=== PATIENT | male | born 1975 | race Caucasian/White ===

== ENCOUNTER 2021-11-18 15:52 | Inpatient (IN) ==
--- NOTE | 2021-11-18 16:04 | ED Triage Note ---
Date of Service November 18, 2021 History of Present Illness This patient was briefly evaluated while in triage. An abbreviated physical exam was performed. This patient is a 46-year-old Male with left facial droop and left arm and leg asleep. Left sided. Symptoms started yesterday afternoon, shortly after lunch time. No new symptoms from yesterday. Slightly slurred speech he notes. Physical Exam GENERAL: 46 year old male. In no acute distress. SKIN: No lesions or rashes. HEART: Regular rate and rhythm. LUNGS: Clear to auscultation. ABDOMEN: Bowel sounds normoactive. No guarding or rigidity. No tenderness of palpation. NEURO: L facial droop noted. L arm and L leg weaker than R. MUSCULOSKELETAL: No deformities to inspection of the extremities. PSYCH: Patient is pleasant and answers all questions appropriately. Initial orders for labs and / or imaging were placed. Stroke initial eval orders placed for STAT imaging of head/neck and labs.
--- NOTE | 2021-11-18 16:17 | Emergency Department Note ---
Impression & Plan Acute ischemic stroke, Hypomagnesemia ED Provider Note NAME: CRISTINA KELLER II AGE: 46 SEX: M : 1975 ARRIVES VIA: Walk-In INFORMANT: Patient, ED PROVIDER(S): Kevan Tim DO CHIEF COMPLAINT: Strokelike symptoms HPI: The patient is a 46-year-old male who presented to the emergency department for an evaluation of strokelike symptoms. The patient states yesterday while he was at work between noon and 1 PM he started having strokelike symptoms which included left-sided facial droop left arm weakness and left leg weakness. His significant other presented to the emergency department with him and states that he has been walking while dragging his left leg. He states he may have had some sinus pressure but overall did not have any specific headache nausea or vomiting. He denies having any chest pain or difficulty breathing. He has not had similar symptoms in the past. He has no family history of stroke or per [place] history of stroke. He does not take medication for hypertension. He did not see his family doctor but came directly to the emergency department today after symptoms did not improve. ROS: See above HPI for pertinent positives & negatives. A total of 10 systems reviewed and were otherwise negative. PAST MEDICAL HISTORY: See Below PAST SURGICAL HISTORY: See Below FAMILY HISTORY: See Below SOCIAL HISTORY: See Below HOME MEDICATIONS: See Below ALLERGIES: See Below VITALS: See Below PHYSICAL EXAMINATION: GENERAL: Patient is awake alert in no acute distress patient is resting comfortably and showing no signs of anxiety EYES: The conjunctivae are clear. The pupils are round and reactive. EARS, NOSE, MOUTH AND THROAT: The nose is without any evidence of any deformity. NECK: The neck is nontender and supple. RESPIRATORY: Normal respiratory effort is noted there is no evidence of wheezing rhonchi or rales CARDIOVASCULAR: Regular rate and rhythm noted there no murmurs rubs or gallops normal S1 normal S2. GASTROINTESTINAL: The abdomen is soft. Abdomen is nontender. MUSCULOSKELETAL/EXTREMITIES: There is no evidence of gross deformity full range of motion is noted in the hips and shoulders. SKIN: There is no obvious evidence of any rash. There are no petechiae, pallor or cyanosis noted. NEUROLOGIC: Patient is awake alert and oriented x3. There is a left-sided facial droop noted with forehead sparing. Speech was clear. Dress Designer strength appeared to be symmetric but there is a slight drift in the left upper extremity. The patient is able to each leg off of the chair but he appears to have diminished strength in the left leg compared to the right. MEDICAL DECISION MAKING: The patient is a 46-year-old male who presented to the emergency department for an evaluation of strokelike symptoms. The patient's symptoms were greater than 24 hours in onset. The patient had left-sided facial droop and left-sided weakness including his leg and arm. He was not made a stroke alert because of the timing of presentation. The patient presented to the emergency department during high-volume time and spent most of his evaluation by me in the waiting room which was suboptimal. The patient was reevaluated multiple times. I discussed the patient's laboratory and radiographic studies with him. CT and CT angiography did not show a definite cause for the patient's symptoms. Given his exam I do feel this is likely an ischemic stroke. I discussed his condition with the on-call [facility] hospitalist. They have agreed to evaluate the patient in the emergency department for further evaluation. Likely patient require further neuroimaging to determine exact cause of his findings. Triage Nursing notes reviewed. Prior medical records reviewed Vital Signs: reviewed and remarkable for no significant abnormalities Differential diagnosis: Infection, dehydration, metabolic abnormality, hypo/hyperglycemia, electrolyte disturbance, anemia, hypoxia, cardiac sources, intracerebral event, toxicologic, neurologic, as well as other pathologies. ER treatment provided: See below Diagnostics interpreted by me: ECG: EKG was obtained in the emergency department. My interpretation is normal sinus rhythm at 90 bpm. There is no ectopy. There is no acute ST segment abnormalities noted. No previous tracing was available. Cardiac Monitoring: An order was placed for continuous cardiac monitoring. The monitor shows a rate of 73 bpm with sinus rhythm. Laboratory studies: As stated above and show below. Imaging studies: See below Consultation(s): Discussed this case with Talya who is on for the [facility] group. Past Med/Surg History Medical History Dyslipidemia Erectile dysfunction History of COVID-19 tested positive March 2021 at [facility]. symptoms: sinus congestion and cough. no current symptoms. Surgical History History of tonsillectomy Family History Mother Breast cancer Father Malignant hyperthermia due to anesthesia Hypertriglyceridemia Lymphocytic leukemia Denies family history of Sudden Ovarian cancer Prostate cancer Myocardial infarction Lung cancer Colorectal cancer Stroke Social History Smoking Status: Never smoker Tobacco Type: Cigars Second Hand Exposure: No; Hx Alcohol Use: No Hx Substance Use: No Preferred Language: Micronesian Communication Ability: Effective Foreign Diplomat Required: No Beliefs That Will Affect Care: None marital status: Current Living Situation: Spouse current occupational status: employed 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 Other Information That Helps Us Care for You: No Feels Safe at Home: Yes Safety Concerns: Feels Safe At This Time Childhood Exposure to Second-Hand Smoke: Yes caffeine: Yes (Soda) Dental Care, Regularly: Yes Physical Activity Frequency: Does not Exercise Seatbelt Use: always Sunscreen Use: Yes Assistive Devices: None Allergies Allergies Allergy/AdvReac Type Severity Reaction Status Date / Time No Known Allergies Verified 05/21/21 12:07 Home Meds Home Medications Medication Instructions Recorded Confirmed ascorbic acid (vitamin C) 1,000 mg 1 gm PO BID 01/25/19 05/21/21 tablet cholecalciferol (vitamin D3) 25 2,000 units PO QAM 01/25/19 05/21/21 mcg (1,000 unit) capsule omega-3 acid ethyl esters 1 gram 2 cap PO QAM 01/25/19 05/21/21 capsule loratadine 10 mg tablet (Claritin) 10 mg PO QAM 05/13/21 05/21/21 fenofibrate nanocrystallized 48 mg 48 mg PO QAM 05/18/21 05/21/21 tablet (Tricor) sildenafil (pulm.hypertension) 20 See Rx Instructions .Route 05/18/21 05/21/21 mg tablet .COMPLEX PRN Erectile Dysfunction Previous Rx's Medication Instructions Recorded sodium sul 1.479 gram-potas ch See Rx Instructions PO .COMPLEX 05/14/21 0.188 gram-magnes sul 0.225 gram #24 tabs tablet (Sutab) Results & Data (ED) Vital Signs Vital Signs - 24 hr 11/18/21 16:02 Temperature 36.5 C Temperature Source Temporal Artery Scan Pulse Rate 95 H Respiratory Rate 18 Respiratory Effort / Characteristics Non-Labored Spontaneous Respiratory Depth Normal Respiratory Pattern Regular Blood Pressure 163/93 H Blood Pressure Mean 116 Blood Pressure Position Sitting Pulse Oximetry 97 Oxygen Delivery Method Room Air Sepsis Recent Fever Within 48 Hours No Sepsis New/Unexplained Change in Mental Status No Sepsis Action Taken by Nursing No Action Required Home Medications Current Medication List: was personally reviewed by me Laboratory Data Attestation: I reviewed the patient's lab results. Result diagrams: 11/19/21 06:59 11/19/21 06:59 Lab Results 11/18/21 11/18/21 11/18/21 Range/Units 16:17 16:17 16:17 WBC 5.64 (4.8-10.8) K/ul RBC 4.77 (4.63-6.08) M/uL Hgb 14.5 (14.0-18.0) g/dl Hct 42.0 (40.1-51.0) % MCV 88.1 (80.0-100.0) fL MCH 30.4 (25.0-34.0) pg MCHC 34.5 (32.0-36.0) g/dL RDW Std Deviation 41.4 (36.4-46.3) fL RDW Coeff of Mindi 12.8 (11.5-14.5) % Plt Count 191 (130-400) K/uL MPV 9.3 L (9.4-12.4) fL Immature Gran % (Auto) 0.5 % Neut % (Auto) 58.6 % Lymph % (Auto) 27.1 % Sherman % (Auto) 11.9 % Eos % (Auto) 1.2 % Baso % (Auto) 0.7 % Neut # (Auto) 3.30 (1.4-6.5) K/uL Lymph # (Auto) 1.53 (1.2-3.4) K/uL Sherman # (Auto) 0.67 (0.24-0.82) K/uL Eos # (Auto) 0.07 (0-0.50) K/uL Baso # (Auto) 0.04 (0-0.2) K/uL Immature Gran # (Auto) 0.03 H (0.00-0.02) K/uL PT 11.3 (9.0-12.0) Seconds INR 1.1 (0.9-1.1) APTT 32.3 H (21.0-31.0) Seconds PTT Ratio 1.2 Sodium 139 (136-145) mmol/L Potassium 3.6 (3.5-5.1) mmol/L Chloride 107 (98-107) mmol/L Carbon Dioxide 23 (21-32) mmol/L Anion Gap 9 (3-11) BUN 14 (6-23) mg/dl Creatinine 0.81 (0.6-1.4) mg/dl Est Cr Clr Drug Dosing 139.9 ml/min Est GFR ( Amer) 123.5 ml/min Est GFR (Non-Af Amer) 106.6 ml/min BUN/Creatinine Ratio 17.3 (10-20) Glucose 75 (70-99(Fasting)) mg/dl Calcium 10.7 H (8.5-10.1) mg/dl Magnesium 1.6 L (1.7-2.4) mg/dl Total Bilirubin 0.6 (0.2-1.0) mg/dl AST 22 (13-39) U/L ALT 30 (7-52) U/L Alkaline Phosphatase 56 (34-104) U/L Troponin I High Sens 3.4 (0-20) pg/ml Total Protein 7.7 (6.0-8.3) gm/dl Albumin 4.9 (3.4-5.0) gm/dl Globulin 2.8 (2.5-4.0) gm/dl Albumin/Globulin Ratio 1.8 (0.9-2) Administered Medications Ascorbic Acid (Ascorbic Acid 500 Mg Tab) 1,000 mg PO BID GOMEZ Stop: 12/18/21 23:05 Last Admin: 11/19/21 01:28 Dose: Not Given Documented By: ANAHI Discontinued Medications Aspirin (Aspirin Chew 324 Mg) 324 mg PO NOW STA Stop: 11/18/21 20:19 Last Admin: 11/18/21 21:19 Dose: 324 mg Documented By: RDD Magnesium Sulfate/Dextrose (Magnesium Sulfate / D5w) 1 gm in 100 mls @ 100 mls/hr IV Q1H GOMEZ Stop: 11/18/21 20:25 Last Infusion: 11/18/21 22:43 Dose: 0 mls/hr Documented By: Admin: 11/18/21 19:33 Dose: 100 mls/hr Documented By: Infusion: 11/18/21 19:33 Dose: 100 mls/hr Documented By: Admin: 11/18/21 19:32 Dose: 100 mls/hr Documented By: LIZZ Ioversol (Optiray 300 500ml) 120 ml IV ONCE ONE Stop: 11/18/21 17:50 Last Admin: 11/18/21 20:02 Dose: Not Given Documented By: LIZZ Imaging Data Radiologist's Impression: Chest X-Ray 11/18/21 16:04 SINGLE VIEW CHEST CLINICAL HISTORY: Strokelike symptoms FINDINGS: 2 AP, portable, upright chest radiographs are obtained. No prior studies are available for comparison at the time of dictation. The cardiomediastinal silhouette is unremarkable. The lungs and pleural spaces are clear. No pneumothorax is seen. The bony thorax is grossly intact. IMPRESSION: No active disease in the chest. ACT 112: Negative or not required by law. Electronically signed by: Shlomo Ellison M.D. 11/18/2021 5:[address] 11/18/21 16:04 CT OF THE HEAD WITHOUT CONTRAST CLINICAL HISTORY: Stroke Like Symptoms COMPARISON STUDY: No previous studies for comparison. TECHNIQUE: Helical axial images of the head were obtained without IV contrast. Automated exposure control was utilized for the study. A dose lowering technique was utilized adhering to the principles of ALARA. FINDINGS: No acute intracranial hemorrhage, midline shift or mass effect is present. The ventricular system is unremarkable. The basal cisterns are patent. No extra-axial collections are present. There are no findings to suggest acute dural sinus thrombosis or acute territorial infarct. No significant calvarial abnormalities are present. IMPRESSION: No acute intracranial findings. ACT 112: Negative or not required by law. Electronically signed by: Alejandro Giang M.D. 11/18/2021 6:05 PM Head CTA 11/18/21 16:04 CTA ANGIOGRAPHY OF THE HEAD CLINICAL HISTORY: Stroke Like Symptoms COMPARISON STUDY: No previous studies for comparison. TECHNIQUE: Helical axial images of the head were obtained following uneventful intravenous administration of 119 cc of Optiray. Sagittal and coronal reconstructions were viewed as well as maximal intensity projections on an independent 3-D workstation. Automated exposure control was utilized for the study. A dose lowering technique was utilized adhering to the principles of ALARA. FINDINGS: Mucous retention cysts with polypoid mucosal thickening of the maxillary sinuses is noted. Left ethmoid sinus mucosal thickening is present. Tiny infundibula of the bilateral supraclinoid ICAs are noted. There is possible occlusion of a small sylvian branch of the left middle cerebral artery shown on axial image 121 of 279. No additional sites of vessel occlusion are noted. This could be artifactual. The posterior circulation is intact. There is no intracranial aneurysm. There is no dissection within the intracranial vessels. IMPRESSION: 1. Possible occlusion of a small sylvian branch of the left middle cerebral artery. This may be artifactual however correlation with evidence for a left MCA territory infarct is recommended. 2. Otherwise, unremarkable CTA of the head. ACT 112: Negative or not required by law. Electronically signed by: Alejandro Giang M.D. 11/18/2021 6:16 PM Neck CTA 11/18/21 16:04 CT ANGIOGRAPHY OF THE NECK WITH CONTRAST CLINICAL HISTORY: Stroke Like Symptoms COMPARISON STUDY: No previous studies for comparison. Technique: CT angiography of the carotid and vertebral arteries was obtained using Optiray and 3D reconstruction on an independent workstation. [employer] crit eria was utilized. Automated exposure control was utilized for the study. A dose lowering technique was utilized adhering to the principles of ALARA. CT DOSE: 1232.39 mGy.cm Findings: Several prominent left supraclavicular lymph nodes measure up to 8 mm in short axis diameter. No acute cervical spine fracture is noted. Mucus reten tion cysts with polypoid mucosal thickening within the maxillary sinuses is noted. The bilateral vertebral arteries are patent. There is no stenosis within these vessels. The right vertebral artery is dominant. There is mild plaque within the proximal bilateral internal carotid arteries without stenosis. There is no aneurysm or dissection within the major vessels of the neck. IMPRESSION: 1. Mild atherosclerotic plaque within the proximal bilateral internal carotid arteries without significant stenosis. 2. No dissection within the major vessels of the neck. ACT 112: Negative or not required by law. Electronically signed by: Alejandro Giang M.D. 11/18/2021 6:08 PM Discharge Plan Visit Data Chief Complaint: TIA Symptoms Stated Complaint: NUMBNESS ON L SIDE, BALANCE ISSUES, SLURRED SPEECH ED Provider: Kevan Tim Discharge Problem: Acute ischemic stroke, Hypomagnesemia Patient Disposition: Admitted As Inpatient Discharge Instructions Interventions: ED Discharge Assessment Last Done: 11/18/21 23:05
[2021-11-18 16:28] LABS: Basophils # (auto) 0.04 K/uL (0-0.2); Basophils % (auto) 0.7 %; Eosinophils # (auto) 0.07 K/uL (0-0.50); Eosinophils % (auto) 1.2 %; Hemoglobin 14.5 g/dl (14.0-18.0); Immature Granulocytes # (auto) 0.03 K/uL (0.00-0.02); Immature Granulocytes % (auto) 0.5 %; Lymphocytes # (auto) 1.53 K/uL (1.2-3.4); Lymphocytes % (auto) 27.1 %; Mean Corpuscular Hemoglobin 30.4 pg (25.0-34.0); Mean Corpuscular Hgb Conc 34.5 g/dL (32.0-36.0); Mean Corpuscular Volume 88.1 fL (80.0-100.0); Mean Platelet Volume 9.3 fL (9.4-12.4); Monocytes # (auto) 0.67 K/uL (0.24-0.82); Monocytes % (auto) 11.9 %; Neutrophils % (auto) 58.6 %; Platelet Count 191 K/uL (130-400); RDW Coefficient of Variation 12.8 % (11.5-14.5); RDW Standard Deviation 41.4 fL (36.4-46.3); Red Blood Count 4.77 M/uL (4.63-6.08); White Blood Count 5.64 K/ul (4.8-10.8)
[2021-11-18 16:39] LABS: INR 1.1 (0.9-1.1); Partial Thromboplastin Ratio 1.2; Partial Thromboplastin Time 32.3 Seconds (21.0-31.0); Prothrombin Time 11.3 Seconds (9.0-12.0)
[2021-11-18 16:57] LABS: Albumin Globulin Ratio 1.8 (0.9-2); Albumin Level 4.9 gm/dl (3.4-5.0); BUN Creatinine Ratio 17.3 (10-20); Bilirubin,Total 0.6 mg/dl (0.2-1.0); Calcium 10.7 mg/dl (8.5-10.1); Creatinine Clr Calc Pharmacy 139.9 ml/min; Est GFR (African American) 123.5 ml/min; Est GFR (Non-African American) 106.6 ml/min; Globulin 2.8 gm/dl (2.5-4.0); Magnesium 1.6 mg/dl (1.7-2.4); Potassium 3.6 mmol/L (3.5-5.1); Total Protein 7.7 gm/dl (6.0-8.3)
[2021-11-18 16:58] LABS: Troponin I High Sensitivity 3.4 pg/ml (0-20)
--- NOTE | 2021-11-18 17:17 | XRay Report ---
SINGLE VIEW CHEST CLINICAL HISTORY: Strokelike symptoms FINDINGS: 2 AP, portable, upright chest radiographs are obtained. No prior studies are available for comparison at the time of dictation. The cardiomediastinal silhouette is unremarkable. The lungs and pleural spaces are clear. No pneumothorax is seen. The bony thorax is grossly intact. IMPRESSION: No active disease in the chest. ACT 112: Negative or not required by law. Electronically signed by: Shlomo Ellison M.D. 11/18/2021 5:16 PM
[2021-11-18] MEDS ORDERED: OPTIRAY 300 500mL IV ONE (17:49)
--- NOTE | 2021-11-18 18:06 | CT Scan Report ---
CT OF THE HEAD WITHOUT CONTRAST CLINICAL HISTORY: Stroke Like Symptoms COMPARISON STUDY: No previous studies for comparison. TECHNIQUE: Helical axial images of the head were obtained without IV contrast. Automated exposure con trol was utilized for the study. A dose lowering technique was utilized adhering to the principles o f ALARA. FINDINGS: No acute intracranial hemorrhage, midline shift or mass effect is present. The ventricular system is unremarkable. The basal cisterns are patent. No extra-axial collections are present. There are no findings to suggest acute dural sinus thrombosis or acute territorial infarct. No significant calvarial abnormalities are present. IMPRESSION: No acute intracranial findings. ACT 112: Negative or not required by law. Electronically signed by: Alejandro Giang M.D. 11/18/2021 6:05 PM
--- NOTE | 2021-11-18 18:10 | CT Scan Report ---
CT ANGIOGRAPHY OF THE NECK WITH CONTRAST CLINICAL HISTORY: Stroke Like Symptoms COMPARISON STUDY: No previous studies for comparison. Technique: CT angiography of the carotid and vertebral arteries was obtained using Optiray and 3D rec onstruction on an independent workstation. NASCET criteria was utilized. Automated exposure control was utilized for the study. A dose lowering technique was utilized adhering to the principles of ALA RA. CT DOSE: 1232.39 mGy.cm Findings: Several prominent left supraclavicular lymph nodes measure up to 8 mm in short axis diamete r. No acute cervical spine fracture is noted. Mucus retention cysts with polypoid mucosal thickening within the maxillary sinuses is noted. The bilateral vertebral arteries are patent. There is no steno sis within these vessels. The right vertebral artery is dominant. There is mild plaque within the pro ximal bilateral internal carotid arteries without stenosis. There is no aneurysm or dissection within the major vessels of the neck. IMPRESSION: 1. Mild atherosclerotic plaque within the proximal bilateral internal carotid arteries without signif icant stenosis. 2. No dissection within the major vessels of the neck. ACT 112: Negative or not required by law. Electronically signed by: Alejandro Giang M.D. 11/18/2021 6:08 PM
--- NOTE | 2021-11-18 18:19 | CT Scan Report ---
CTA ANGIOGRAPHY OF THE HEAD CLINICAL HISTORY: Stroke Like Symptoms COMPARISON STUDY: No previous studies for comparison. TECHNIQUE: Helical axial images of the head were obtained following uneventful intravenous administr ation of 119 cc of Optiray. Sagittal and coronal reconstructions were viewed as well as maximal inten sity projections on an independent 3-D workstation. Automated exposure control was utilized for the study. A dose lowering technique was utilized adhering to the principles of ALARA. FINDINGS: Mucous retention cysts with polypoid mucosal thickening of the maxillary sinuses is noted. Left ethmoid sinus mucosal thickening is present. Tiny infundibula of the bilateral supraclinoid ICAs are noted. There is possible occlusion of a small sylvian branch of the left middle cerebral artery shown on axial image 121 of 279. No additional sites of vessel occlusion are noted. This could be art ifactual. The posterior circulation is intact. There is no intracranial aneurysm. There is no dissect ion within the intracranial vessels. IMPRESSION: 1. Possible occlusion of a small sylvian branch of the left middle cerebral artery. This may be artif actual however correlation with evidence for a left MCA territory infarct is recommended. 2. Otherwise, unremarkable CTA of the head. ACT 112: Negative or not required by law. Electronically signed by: Alejandro Giang M.D. 11/18/2021 6:16 PM
--- NOTE | 2021-11-18 18:47 | History & Physical Report ---
Date of Service November 18, 2021 Assessment & Plan (1) Stroke-like symptom: Plan: - LLE weakness, left side facial droop, LUE weakness from elbow up since noon yesterday 11/18. Patient all extremities on exam, but obviously struggling with LLE compared to right. NIH 2. - CT head without evidence of mass/hemorrhage/infarct. - CTA of head and neck w/ possible occlusion of a small sylvian branch of the left middle cerebral artery; no significant stenosis. - MRI, routine, tomorrow. - Echo in a.m. - CBC, BMP, HbA1c, lipid panel in a.m. - PT, OT, to evaluate. - Hypercoag panel ordered. - Avoid hypotension, hypoglycemia. - Telemetry for 24 hours, evaluate for episodes of atrial fibrillation. - Neuro consulted, appreciate their recommendations. - Full dose ASA ordered. (2) Dyslipidemia: Plan: - Continue Tricor. Lipid panel in AM. (3) Nasal congestion: Plan: - Sinus pressure during onset of symptoms yesterday has since resolved. - Continue Claritin. Plan - Admit to med/tele. - SCDS for VTE ppx. - Full Code. 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 Yesterday at work around noon, he noticed that the left side of his body seemed weaker than the right. He notes it felt like when the circulation gets cut off and part of her body goes numb. When he went home, his noticed that he seemed to be talking out of the right side of his mouth and had a left-sided facial droop. He is also been dragging his left leg a bit to walk. Since onset yesterday afternoon, his symptoms seem to become worse, therefore he presents today for further evaluation. Prior to this, he had been feeling well. He notes some sinus congestion when the symptoms began yesterday, however this has cleared up. He denies any fever/chills, headaches, neck stiffness, visual changes, sudden chest pain or palpitations, or right-sided involvement. Other than medication for high cholesterol, he is not on any other medications other than vitamins, Viagra, and Claritin. He is physically active at his job and has some exercise related body aches, however denies any neck or back injuries. Has had no recent rashes or tick bites, no decreased energy or myalgias. He has no personal family history of strokes or blood clotting disorders. In ED, still mildly hypertensive otherwise vital signs within normal limits and stable. Labs significant for magnesium slightly low at 1.6, otherwise unremarkable. Head CT unrevealing. On head CTA, there is a possible occlusion of the small sylvian branch of the left MCA, possibly artifactual. Neck CTA there is mild atherosclerotic plaque of the proximal bilateral internal carotid arteries without significant stenosis, no dissection within major vessels of the neck. Allergies Allergy/AdvReac Type Severity Reaction Status Date / Time No Known Allergies Verified 05/21/21 12:07 Home Medications Medication Instructions Recorded Confirmed Type ascorbic acid (vitamin C) 1,000 mg 1 gm PO BID 01/25/19 05/21/21 History tablet cholecalciferol (vitamin D3) 25 2,000 units PO QAM 01/25/19 05/21/21 History mcg (1,000 unit) capsule omega-3 acid ethyl esters 1 gram 2 cap PO QAM 01/25/19 05/21/21 History capsule loratadine 10 mg tablet (Claritin) 10 mg PO QAM 05/13/21 05/21/21 History sodium sul 1.479 gram-potas ch See Rx Instructions PO .COMPLEX 05/14/21 05/21/21 Rx 0.188 gram-magnes sul 0.225 gram #24 tabs tablet (Sutab) fenofibrate nanocrystallized 48 mg 48 mg PO QAM 05/18/21 05/21/21 History tablet (Tricor) sildenafil (pulm.hypertension) 20 See Rx Instructions .Route 05/18/21 05/21/21 History mg tablet .COMPLEX PRN Erectile Dysfunction Past Med/Surg History Medical History Dyslipidemia Erectile dysfunction History of COVID-19 tested positive March 2021 at [facility]. symptoms: sinus congestion and cough. no current symptoms. Surgical History History of tonsillectomy Family History Mother Breast cancer Father Malignant hyperthermia due to anesthesia Hypertriglyceridemia Lymphocytic leukemia Denies family history of Sudden Ovarian cancer Prostate cancer Myocardial infarction Lung cancer Colorectal cancer Stroke Social History Smoking Status: Never smoker Tobacco Type: Cigars Second Hand Exposure: No; Hx Alcohol Use: No Hx Substance Use: No Preferred Language: Japanese Communication Ability: Effective Assistant To The Director Required: No Beliefs That Will Affect Care: None marital status: Current Living Situation: Spouse current occupational status: employed 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 Other Information That Helps Us Care for You: No Feels Safe at Home: Yes Safety Concerns: Feels Safe At This Time Childhood Exposure to Second-Hand Smoke: Yes caffeine: Yes (Soda) Dental Care, Regularly: Yes Physical Activity Frequency: Does not Exercise Seatbelt Use: always Sunscreen Use: Yes Assistive Devices: None Review of Systems Review of Systems: All systems reviewed & are unremarkable except as noted in HPI & below Physical Exam Physical Exam: General: awake, alert, no apparent distress Head: Normocephalic, atraumatic ENT: PERRL, EOMI, no pharyngeal exudate, mucous membranes moist Chest: Clear to auscultation, on room air, no adventitious breath sounds Cardiac: Regular rate and rhythm, no murmur, no JVD, normal peripheral pulses, good capillary refill Abdominal: NABS x 4 quadrants, soft, nontender to palpation, no rebound, guarding or tenderness Extremities: Normal inspection, no peripheral edema or erythema, calfs nontender to palpation Psych: Normal mood and affect Neuro: AAO x 3, able to lift all extremities against gravity but has some difficulty with LLE; left sided facial droop which spares forehead Skin: no rash or erythema Results & Data Results & Data ([facility]) Vital Signs (Past 12 Hours) Vital Signs Temp Pulse Resp BP Pulse Ox O2 Del Method 11/18/21 16:02 36.5 C 95 H 18 163/93 H 97 Room Air Laboratory Results Abnormal lab results 11/18/21 11/18/21 11/18/21 Range/Units 16:17 16:17 16:17 MPV 9.3 L (9.4-12.4) fL Immature Gran # (Auto) 0.03 H (0.00-0.02) K/uL APTT 32.3 H (21.0-31.0) Seconds Calcium 10.7 H (8.5-10.1) mg/dl Magnesium 1.6 L (1.7-2.4) mg/dl Diagnostic Findings Chest X-Ray 11/18/21 16:04 SINGLE VIEW CHEST CLINICAL HISTORY: Strokelike symptoms FINDINGS: 2 AP, portable, upright chest radiographs are obtained. No prior studies are available for comparison at the time of dictation. The cardiomediastinal silhouette is unremarkable. The lungs and pleural spaces are clear. No pneumothorax is seen. The bony thorax is grossly intact. IMPRESSION: No active disease in the chest. ACT 112: Negative or not required by law. Electronically signed by: Shlomo Ellison M.D. 11/18/2021 5:[address] 11/18/21 16:04 CT OF THE HEAD WITHOUT CONTRAST CLINICAL HISTORY: Stroke Like Symptoms COMPARISON STUDY: No previous studies for comparison. TECHNIQUE: Helical axial images of the head were obtained without IV contrast. Automated exposure control was utilized for the study. A dose lowering technique was utilized adhering to the principles of ALARA. FINDINGS: No acute intracranial hemorrhage, midline shift or mass effect is present. The ventricular system is unremarkable. The basal cisterns are patent. No extra-axial collections are present. There are no findings to suggest acute dural sinus thrombosis or acute territorial infarct. No significant calvarial abnormalities are present. IMPRESSION: No acute intracranial findings. ACT 112: Negative or not required by law. Electronically signed by: Alejandro Giang M.D. 11/18/2021 6:05 PM Head CTA 11/18/21 16:04 CTA ANGIOGRAPHY OF THE HEAD CLINICAL HISTORY: Stroke Like Symptoms COMPARISON STUDY: No previous studies for comparison. TECHNIQUE: Helical axial images of the head were obtained following uneventful intravenous administration of 119 cc of Optiray. Sagittal and coronal reconstructions were viewed as well as maximal intensity projections on an independent 3-D workstation. Automated exposure control was utilized for the study. A dose lowering technique was utilized adhering to the principles of ALARA. FINDINGS: Mucous retention cysts with polypoid mucosal thickening of the maxillary sinuses is noted. Left ethmoid sinus mucosal thickening is present. Tiny infundibula of the bilateral supraclinoid ICAs are noted. There is possible occlusion of a small sylvian branch of the left middle cerebral artery shown on axial image 121 of 279. No additional sites of vessel occlusion are noted. This could be artifactual. The posterior circulation is intact. There is no intracranial aneurysm. There is no dissection within the intracranial vessels. IMPRESSION: 1. Possible occlusion of a small sylvian branch of the left middle cerebral artery. This may be artifactual however correlation with evidence for a left MCA territory infarct is recommended. 2. Otherwise, unremarkable CTA of the head. ACT 112: Negative or not required by law. Electronically signed by: Alejandro Giang M.D. 11/18/2021 6:16 PM Neck CTA 11/18/21 16:04 CT ANGIOGRAPHY OF THE NECK WITH CONTRAST CLINICAL HISTORY: Stroke Like Symptoms COMPARISON STUDY: No previous studies for comparison. Technique: CT angiography of the carotid and vertebral arteries was obtained using Optiray and 3D reconstruction on an independent workstation. NASCET criteria was utilized. Automated exposure control was utilized for the study. A dose lowering technique was utilized adhering to the principles of ALARA. CT DOSE: 1232.39 mGy.cm Findings: Several prominent left supraclavicular lymph nodes measure up to 8 mm in short axis diameter. No acute cervical spine fracture is noted. Mucus retention cysts with polypoid mucosal thickening within the maxillary sinuses is noted. The bilateral vertebral arteries are patent. There is no stenosis within these vessels. The right vertebral artery is dominant. There is mild plaque w ithin the proximal bilateral internal carotid arteries without stenosis. There is no aneurysm or dissection within the major vessels of the neck. IMPRESSION: 1. Mild atherosclerotic plaque within the proximal bilateral internal carotid arteries without significant stenosis. 2. No dissection within the major vessels of the neck. ACT 112: Negative or not required by law. Electronically signed by: Alejandro Giang M.D. 11/18/2021 6:08 PM ECG Additional Comments: Normal sinus rhythm Possible Left atrial enlargement Borderline ECG No previous ECGs available. Code Status & VTE Plan Code Status Full code. Supervising Physician Co-Signing Physician Notes Attending addendum: I have physically seen this patient, have supervised the OMERO's activities, and agree with the H&P unless as otherwise noted. Assessment and Plan: Strokelike symptoms- Left lower extremity weakness, left-sided facial droop, left upper extremity weakness since noon on 11/18 CT head negative CTA head and neck with possible occlusion small sylvian branch of left MCA Stroke without tPA order set Order complete echocardiogram Order MRI brain without contrast Hypercoagulable work-up Permissive hypertension Get aspirin 324 mg now and 81 mg daily Dyslipidemia- Continue Tricor Check a fasting lipid panel Check hemoglobin A1c Remaining orders and notations as noted PG Care Time/CCT Total # of Minutes Spent Total Time Spent with Patient: Total time spent is greater than 50% in coordination of care (as documented) at patient's floor/unit and/or counseling patient: Coding Level of Care Code 63602 Initial Inpt Care Lvl 3 Diagnoses Stroke-like symptom R29.90 Dyslipidemia E78.5 Nasal congestion R09.81
[2021-11-18] MEDS: MAGNESIUM SULFATE / D5W 1 GM/100 ML BAG IV SCH ×2 (19:32→19:33)
[2021-11-18] MEDS ORDERED: ASPIRIN CHEW 324 MG PO STA (20:18)
[2021-11-18] MEDS ORDERED: ONDANSETRON INJ 2 MG/ML 2 ML VIAL IV PRN (23:06)
[2021-11-18] MEDS ORDERED: PHARMACIST DISCHARGE MED REC CONSULT PRN (23:06)
[2021-11-19] MEDS: ASCORBIC ACID 500 MG TAB PO SCH ×3 (01:28→22:00)
--- NOTE | 2021-11-19 05:52 | Electrocardiogram Report ---
Test Reason : Blood Pressure : / mmHG Vent. Rate : 090 BPM Atrial Rate : 090 BPM P-R Int : 134 ms QRS Dur : 090 ms QT Int : 340 ms P-R-T Axes : 076 038 042 degrees QTc Int : 415 ms Normal sinus rhythm Possible Left atrial enlargement Nonspecific ST abnormality No previous ECGs available Confirmed by Rahat Wallace ([id number]) on 11/19/2021 5:52:14 AM Referred By: Confirmed By:Rahat Wallace
[2021-11-19 07:25] LABS: Basophils # (auto) 0.03 K/uL (0-0.2); Basophils % (auto) 0.6 %; Hematocrit (blood only) 42.2 % (40.1-51.0); Hemoglobin 14.5 g/dl (14.0-18.0); Immature Granulocytes # (auto) 0.02 K/uL (0.00-0.02); Immature Granulocytes % (auto) 0.4 %; Lymphocytes # (auto) 1.68 K/uL (1.2-3.4); Lymphocytes % (auto) 33.2 %; Mean Corpuscular Hemoglobin 30.2 pg (25.0-34.0); Mean Corpuscular Hgb Conc 34.4 g/dL (32.0-36.0); Mean Corpuscular Volume 87.9 fL (80.0-100.0); Mean Platelet Volume 9.6 fL (9.4-12.4); Monocytes # (auto) 0.64 K/uL (0.24-0.82); Monocytes % (auto) 12.6 %; Neutrophils # (auto) 2.59 K/uL (1.4-6.5); Neutrophils % (auto) 51.2 %; Platelet Count 177 K/uL (130-400); RDW Coefficient of Variation 12.9 % (11.5-14.5); RDW Standard Deviation 41.6 fL (36.4-46.3); White Blood Count 5.06 K/ul (4.8-10.8)
[2021-11-19 07:46] LABS: BUN Creatinine Ratio 16.2 (10-20); Calcium 9.4 mg/dl (8.5-10.1); Chol HDL Ratio 5.9 (0-5); Creatinine Clr Calc Pharmacy 153.1 ml/min; Est GFR (African American) 128.2 ml/min; Est GFR (Non-African American) 110.6 ml/min; Potassium 3.8 mmol/L (3.5-5.1)
--- NOTE | 2021-11-19 08:00 | Magnetic Resonance Report ---
MRI OF THE BRAIN WITHOUT IV CONTRAST CLINICAL HISTORY: Strokelike symptoms. COMPARISON STUDY: CT of the brain dated 11/18/2021. TECHNIQUE: MRI of the brain was performed utilizing various T1 and T2-weighted sequences in the axial , sagittal, and coronal planes. IV contrast was not administered for this examination. FINDINGS: Brain parenchyma: There is a 2.2 cm focus of restricted diffusion identified in the posterior right c tori radiata/basal ganglia consistent with an acute to subacute lacunar infarct. No additional foci of restricted diffusion identified. There is no hemorrhage or mass effect. No extra-axial fluid colle ction is seen. There is minimal microangiopathic change. The cerebellar tonsils are normal in configu ration. Ventricles, sulci, and cisterns: Normal in configuration. Pituitary and sella: Unremarkable. Intracranial vasculature: Normal flow voids are maintained at the skull base. Orbits: The bony orbits are grossly intact. Orbital contents are normal in appearance. Sinuses and mastoids: There is mild mucosal thickening within the maxillary antra. Retention cysts wi thin the maxillary sinuses measuring 2.2 cm. Mild mucosal thickening is also seen within the left fro ntal and ethmoid sinuses. There are trace mastoid effusions. Calvarium: Unremarkable. Cervical cord: Partially visualized cervical spinal cord is normal in morphology and signal intensity . IMPRESSION: 1. There is an acute to subacute lacunar infarct identified in the posterior right morfin radiata/bas al ganglia as above. 2. No additional foci of acute ischemia identified. 3. There is no hemorrhage or mass effect. ACT 112: Negative or not required by law. Electronically signed by: Shlomo Ellison M.D. 11/19/2021 7:58 AM
[2021-11-19 08:48] LABS: Estimated Average Glucose 117 mg/dl; Hemoglobin A1C 5.7 % (4.5-5.6)
[2021-11-19] MEDS: CHOLECALCIFEROL 1,000 UNITS 25 MCG TAB PO SCH (11:32)
[2021-11-19] MEDS: FENOFIBRATE NANOCRYSTALLIZED 48 MG TABLET PO SCH (11:32)
[2021-11-19] MEDS: LORATADINE 10 MG TAB PO SCH (11:32)
[2021-11-19] MEDS: ASPIRIN 81 MG ECTAB PO SCH (11:33)
[2021-11-19] MEDS: ATORVASTATIN 40 MG TAB PO SCH (11:33)
[2021-11-19] MEDS: ENOXAPARIN INJ 40 MG/0.4 ML SYR SQ SCH (11:33)
--- NOTE | 2021-11-19 15:35 | Neurology Consultation ---
Date of Consultation November 19, 2021 Assessment & Plan (1) Acute ischemic stroke: (2) Dyslipidemia: (3) COVID-19 determined by clinical diagnostic criteria: Plan ASSESSMENT and PLAN/RECOMMENDATIONS: 1. Acute/subacute ischemic stroke, involving the right internal capsule/basal ganglia. Impression: Based on location, the likely underlying mechanism is small vessel disease. However, active COVID-19 infection might induce hypercoagulability. The patient has hyperlipidemia, which is a risk factor for cerebrovascular accident. He also describes snoring and excessive daytime sleepiness, which might indicate sleep disordered breathing which is another potential stroke risk factor. Plan: We will keep the patient on aspirin 81 g daily. Loaded on Plavix 300 mg now, then daily 75 mg for next 3 weeks. Lipitor 80 mg at bedtime. Goal LDL level is lower than 70. Dosage of Lipitor should be adjusted based on follow-up serum lipid levels. Blood pressure management. There is no indication for permissive hypertension. Goal blood pressure is below 130/80. Telemetry monitoring. The patient will need outpatient long-term cardiac rhythm monitoring to rule out paroxysmal atrial fibrillation. Echocardiogram with bubble study. Physical therapy and Occupational Therapy evaluations. The patient is a good candidate for inpatient rehabilitation. Hypercoagulable state work-up. Follow-up with neurology clinic in a month. 2. Hyperlipidemia Plan: As seen above. 3 COVID-19 infection Impression: The patient reports having some sinus symptoms recently. Otherwise, he denies any symptoms to suggest pneumonia. Plan: Care per hospitalist physician. Thank you for the consultation. History of Present Illness Reason for Consultation: Left sided weakness and numbness Requesting Physician: Deepak Wells Attending Physician: Deepak Wells History of Present Illness The patient is a 46-year-old right-handed gentleman, who noticed left-sided weakness, affected his left leg initially, then left arm and left lower face, with hemiparesthesia, the day before yesterday. He did not seek medical attention then, but because of persistent symptoms, he presented to the emergency department. Head CT was unremarkable. CT angiography of head and neck did not show hemodynamically significant stenosis but some atherosclerotic changes of bilateral internal carotid arteries. CT angiography of the head rep orted left MCA sylvian branch occlusion versus artifact. Patient was started on aspirin and admitted to the hospital for further work-up. Apparently, he was not a candidate for thrombolytic treatment. Since admission, brain MRI was completed, which showed a right internal capsule/basal ganglia acute/subacute ischemic stroke. COVID-19 test was positive. The patient reports having some flu symptoms recently but denies any fatigue, or coughing. The patient has no history of neuro stroke symptoms in the past. He has been on statin for hyperlipidemia but no other medications. He denies smoking cigarettes, or using illicit drugs. One of his grandparent was diagnosed with stroke at the age of 61. Otherwise, he has no family history of early stroke. He denies having problems with blood clotting or palpitations. Snores with daytime sleepiness. Serum lipid panel showed elevated serum lipids. Has left-sided hemiparesthesia has been improved since admission, but still he has a left hemiparesis. I have reviewed the patient's chart including imaging studies and visualized them personally. I have discussed the case with the patient and answer his questions in detail. Allergies Allergy/AdvReac Type Severity Reaction Status Date / Time No Known Allergies Verified 05/21/21 12:07 Home Medications Medication Instructions Recorded Confirmed Type ascorbic acid (vitamin C) 1,000 mg 1 gm PO BID 01/25/19 05/21/21 History tablet cholecalciferol (vitamin D3) 25 2,000 units PO QAM 01/25/19 05/21/21 History mcg (1,000 unit) capsule omega-3 acid ethyl esters 1 gram 2 cap PO QAM 01/25/19 05/21/21 History capsule loratadine 10 mg tablet (Claritin) 10 mg PO QAM 05/13/21 05/21/21 History sodium sul 1.479 gram-potas ch See Rx Instructions PO .COMPLEX 05/14/21 05/21/21 Rx 0.188 gram-magnes sul 0.225 gram #24 tabs tablet (Sutab) fenofibrate nanocrystallized 48 mg 48 mg PO QAM 05/18/21 05/21/21 History tablet (Tricor) sildenafil (pulm.hypertension) 20 See Rx Instructions .Route 05/18/21 05/21/21 History mg tablet .COMPLEX PRN Erectile Dysfunction Patient History Medical History Dyslipidemia Erectile dysfunction History of COVID-19 tested positive March 2021 at [facility]. symptoms: sinus congestion and cough. no current symptoms. Surgical History History of tonsillectomy Family History Mother Breast cancer Father Malignant hyperthermia due to anesthesia Hypertriglyceridemia Lymphocytic leukemia Denies family history of Sudden Ovarian cancer Prostate cancer Myocardial infarction Lung cancer Colorectal cancer Stroke Social History Smoking Status: Never smoker Tobacco Type: Cigars Second Hand Exposure: No; Hx Alcohol Use: No Hx Substance Use: No Preferred Language: Occitan Communication Ability: Effective Filler Feeder Required: No Beliefs That Will Affect Care: None marital status: Current Living Situation: Spouse current occupational status: employed 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 HENT: Normal exam with inspection. CV: Hearth rhtyhm is regular. Neck: Supple, no carotid bruits. Lungs: Non-labored and comfortable breathing. Abdomen: Soft, non-tender, non-distended. Skin: No rash or ecchymosis. Extremities: No edema or cyanosis NEUROLOGICAL EXAMINATION: Mental Status: Alert and oriented to place, person and time. Cranial Nerves: II-XII are intact. No nystagmus. Funduscopy: Not attempted Motor: 5/5 in right upper and lower extremities. Left arm strength is 4+ out of 5, with pronator drift. Left leg strength is 3 out of 5. Tone: Normal without spasticity or rigidity. Sensory: Intact to all sensory modalities. Coordination: No dysmetria with FTN testing. Speech: Fluent. Comprehension is intact. Gait: Not assessed. Musculoskeletal: Normal muscle bulk, no atrophy. DTRs: Normal and symmetrical with left babinski. Results & Data ([facility]) Vital Signs (Past 12 Hours) Vital Signs Temp Pulse Pulse Resp BP Pulse Ox O2 Del Method 11/19/21 07:54 36.9 C 73 18 122/79 95 Room Air 11/19/21 06:59 105 H 11/19/21 03:22 83 Laboratory Results Laboratory Results - last 24 hr 11/18/21 11/18/21 11/18/21 16:17 16:17 16:17 WBC 5.64 RBC 4.77 Hgb 14.5 Hct 42.0 MCV 88.1 MCH 30.4 MCHC 34.5 RDW Std Deviation 41.4 RDW Coeff of [place] 12.8 Plt Count 191 MPV 9.3 L Immature Gran % (Auto) 0.5 Neut % (Auto) 58.6 Lymph % (Auto) 27.1 [place] % (Auto) 11.9 Eos % (Auto) 1.2 Baso % (Auto) 0.7 Neut # (Auto) 3.30 Lymph # (Auto) 1.53 [place] # (Auto) 0.67 Eos # (Auto) 0.07 Baso # (Auto) 0.04 Immature Gran # (Auto) 0.03 H PT 11.3 INR 1.1 APTT 32.3 H PTT Ratio 1.2 LA PTT Screen Protein C Activity Protein S Activity Antithrombin III Activ Factor V Leiden Mutat Factor V Leiden Interp Sodium 139 Potassium 3.6 Chloride 107 Carbon Dioxide 23 Anion Gap 9 BUN 14 Creatinine 0.81 Est Cr Clr Drug Dosing 139.9 Est GFR ( Amer) 123.5 Est GFR (Non-Af Amer) 106.6 BUN/Creatinine Ratio 17.3 Glucose 75 Estimat Average Glucose Hemoglobin A1c Calcium 10.7 H Magnesium 1.6 L Total Bilirubin 0.6 AST 22 ALT 30 Alkaline Phosphatase 56 Troponin I High Sens 3.4 Total Protein 7.7 Albumin 4.9 Globulin 2.8 Albumin/Globulin Ratio 1.8 Triglycerides Cholesterol LDL Cholesterol, Calc VLDL Cholesterol, Calc HDL Cholesterol Cholesterol/HDL Ratio Homocysteine Beta-2-GPI IgG Ab Beta-2-GPI IgM Ab Anti-Cardiolipin IgG Ab Anti-Cardiolipin IgM Ab SARS-CoV-2, RNA, NAAT Prothrombin Gene Mutate Prothromb Gene Comment 11/18/21 11/18/21 11/18/21 19:42 19:42 19:42 WBC RBC Hgb Hct MCV MCH MCHC RDW Std Deviation RDW Coeff of [place] Plt Count MPV Immature Gran % (Auto) Neut % (Auto) Lymph % (Auto) [place] % (Auto) Eos % (Auto) Baso % (Auto) Neut # (Auto) Lymph # (Auto) [place] # (Auto) Eos # (Auto) Baso # (Auto) Immature Gran # (Auto) PT INR APTT PTT Ratio LA PTT Screen Pending Protein C Activity Pending Protein S Activity Pending Antithrombin III Activ Pending Factor V Leiden Mutat Pending Factor V Leiden Interp Pending Sodium Potassium Chloride Carbon Dioxide Anion Gap BUN Creatinine Est Cr Clr Drug Dosing Est GFR ( Amer) Est GFR (Non-Af Amer) BUN/Creatinine Ratio Glucose Estimat Average Glucose Hemoglobin A1c Calcium Magnesium Total Bilirubin AST ALT Alkaline Phosphatase Troponin I High Sens Total Protein Albumin Globulin Albumin/Globulin Ratio Triglycerides Cholesterol LDL Cholesterol, Calc VLDL Cholesterol, Calc HDL Cholesterol Cholesterol/HDL Ratio Homocysteine Beta-2-GPI IgG Ab Pending Beta-2-GPI IgM Ab Pending Anti-Cardiolipin IgG Ab Pending Anti-Cardiolipin IgM Ab Pending SARS-CoV-2, RNA, NAAT Prothrombin Gene Mutate Pending Prothromb Gene Comment Pending 11/18/21 11/18/21 11/19/21 19:42 19:43 06:59 WBC 5.06 RBC 4.80 Hgb 14.5 Hct 42.2 MCV 87.9 MCH 30.2 MCHC 34.4 RDW Std Deviation 41.6 RDW Coeff of [place] 12.9 Plt Count 177 MPV 9.6 Immature Gran % (Auto) 0.4 Neut % (Auto) 51.2 Lymph % (Auto) 33.2 [place] % (Auto) 12.6 Eos % (Auto) 2.0 Baso % (Auto) 0.6 Neut # (Auto) 2.59 Lymph # (Auto) 1.68 [place] # (Auto) 0.64 Eos # (Auto) 0.10 Baso # (Auto) 0.03 Immature Gran # (Auto) 0.02 PT INR APTT PTT Ratio LA PTT Screen Protein C Activity Protein S Activity Antithrombin III Activ Factor V Leiden Mutat Factor V Leiden Interp Sodium Potassium Chloride Carbon Dioxide Anion Gap BUN Creatinine Est Cr Clr Drug Dosing Est GFR ( Amer) Est GFR (Non-Af Amer) BUN/Creatinine Ratio Glucose Estimat Average Glucose Hemoglobin A1c Calcium Magnesium Total Bilirubin AST ALT Alkaline Phosphatase Troponin I High Sens Total Protein Albumin Globulin Albumin/Globulin Ratio Triglycerides Cholesterol LDL Cholesterol, Calc VLDL Cholesterol, Calc HDL Cholesterol Cholesterol/HDL Ratio Homocysteine Pending Beta-2-GPI IgG Ab Beta-2-GPI IgM Ab Anti-Cardiolipin IgG Ab Anti-Cardiolipin IgM Ab SARS-CoV-2, RNA, NAAT POSITIVE A* Prothrombin Gene Mutate Prothromb Gene Comment 11/19/21 11/19/21 06:59 06:59 WBC RBC Hgb Hct MCV MCH MCHC RDW Std Deviation RDW Coeff of [place] Plt Count MPV Immature Gran % (Auto) Neut % (Auto) Lymph % (Auto) [place] % (Auto) Eos % (Auto) Baso % (Auto) Neut # (Auto) Lymph # (Auto) [place] # (Auto) Eos # (Auto) Baso # (Auto) Immature Gran # (Auto) PT INR APTT PTT Ratio LA PTT Screen Protein C Activity Protein S Activity Antithrombin III Activ Factor V Leiden Mutat Factor V Leiden Interp Sodium 139 Potassium 3.8 Chloride 106 Carbon Dioxide 23 Anion Gap 10 BUN 12 Creatinine 0.74 Est Cr Clr Drug Dosing 153.1 Est GFR ( Amer) 128.2 Est GFR (Non-Af Amer) 110.6 BUN/Creatinine Ratio 16.2 Glucose 88 Estimat Average Glucose 117 Hemoglobin A1c 5.7 H Calcium 9.4 Magnesium Total Bilirubin AST ALT Alkaline Phosphatase Troponin I High Sens Total Protein Albumin Globulin Albumin/Globulin Ratio Triglycerides 176 H Cholesterol 177 LDL Cholesterol, Calc 112 VLDL Cholesterol, Calc 35 H HDL Cholesterol 30 Cholesterol/HDL Ratio 5.9 H Homocysteine Beta-2-GPI IgG Ab Beta-2-GPI IgM Ab Anti-Cardiolipin IgG Ab Anti-Cardiolipin IgM Ab SARS-CoV-2, RNA, NAAT Prothrombin Gene Mutate Prothromb Gene Comment Diagnostic Findings Chest X-Ray 11/18/21 16:04 SINGLE VIEW CHEST CLINICAL HISTORY: Strokelike symptoms FINDINGS: 2 AP, portable, upright chest radiographs are obtained. No prior studies are available for comparison at the time of dictation. The cardiomediastinal silhouette is unremarkable. The lungs and pleural spaces are clear. No pneumothorax is seen. The bony thorax is grossly intact. IMPRESSION: No active disease in the chest. ACT 112: Negative or not required by law. Electronically signed by: Shlomo Ellison M.D. 11/18/2021 5:[address] 11/18/21 16:04 CT OF THE HEAD WITHOUT CONTRAST CLINICAL HISTORY: Stroke Like Symptoms COMPARISON STUDY: No previous studies for comparison. TECHNIQUE: Helical axial images of the head were obtained without IV contrast. Automated exposure control was utilized for the study. A dose lowering technique was utilized adhering to the principles of ALARA. FINDINGS: No acute intracranial hemorrhage, midline shift or mass effect is present. The ventricular system is unremarkable. The basal cisterns are patent. No extra-axial collections are present. There are no findings to suggest acute dural sinus thrombosis or acute territorial infarct. No significant calvarial abnormalities are present. IMPRESSION: No acute intracranial findings. ACT 112: Negative or not required by law. Electronically signed by: Alejandro Giang M.D. 11/18/2021 6:05 PM Head CTA 11/18/21 16:04 CTA ANGIOGRAPHY OF THE HEAD CLINICAL HISTORY: Stroke Like Symptoms COMPARISON STUDY: No previous studies for comparison. TECHNIQUE: Helical axial images of the head were obtained following uneventful intravenous administration of 119 cc of Optiray. Sagittal and coronal treva nstructions were viewed as well as maximal intensity projections on an independent 3-D workstation. Automated exposure control was utilized for the study. A dose lowering technique was utilized adhering to the principles of ALARA. FINDINGS: Mucous retention cysts with polypoid mucosal thickening of the maxillary sinuses is noted. Left ethmoid sinus mucosal thickening is present. Tiny infundibula of the bilateral supraclinoid ICAs are noted. There is possible occlusion of a small sylvian branch of the left middle cerebral artery shown on axial image 121 of 279. No additional sites of vessel occlusion are noted. This could be artifactual. The posterior circulation is intact. There is no intracranial aneurysm. There is no dissection within the intracranial vessels. IMPRESSION: 1. Possible occlusion of a small sylvian branch of the left middle cerebral artery. This may be artifactual however correlation with evidence for a left MCA territory infarct is recommended. 2. Otherwise, unremarkable CTA of the head. ACT 112: Negative or not required by law. Electronically signed by: Alejandro Giang M.D. 11/18/2021 6:16 PM Neck CTA 11/18/21 16:04 CT ANGIOGRAPHY OF THE NECK WITH CONTRAST CLINICAL HISTORY: Stroke Like Symptoms COMPARISON STUDY: No previous studies for comparison. Technique: CT angiography of the carotid and vertebral arteries was obtained using Optiray and 3D reconstruction on an independent workstation. NASCET criteria was utilized. Automated exposure control was utilized for the study. A dose lowering technique was utilized adhering to the principles of ALARA. CT DOSE: 1232.39 mGy.cm Findings: Several prominent left supraclavicular lymph nodes measure up to 8 mm in short axis diameter. No acute cervical spine fracture is noted. Mucus retention cysts with polypoid mucosal thickening within the maxillary sinuses is noted. The bilateral vertebral arteries are patent. There is no stenosis within these vessels. The right vertebral artery is dominant. There is mild plaque within the proximal bilateral internal carotid arteries without stenosis. There is no aneurysm or dissection within the major vessels of the neck. IMPRESSION: 1. Mild atherosclerotic plaque within the proximal bilateral internal carotid arteries without significant stenosis. 2. No dissection within the major vessels of the neck. ACT 112: Negative or not required by law. Electronically signed by: Alejandro Giang M.D. 11/18/2021 6:08 PM Brain MRI 11/18/21 18:56 MRI OF THE BRAIN WITHOUT IV CONTRAST CLINICAL HISTORY: Strokelike symptoms. COMPARISON STUDY: CT of the brain dated 11/18/2021. TECHNIQUE: MRI of the brain was performed utilizing various T1 and T2-weighted sequences in the axial, sagittal, and coronal planes. IV contrast was not administered for this examination. FINDINGS: Brain parenchyma: There is a 2.2 cm focus of restricted diffusion identified in the posterior right morfin radiata/basal ganglia consistent with an acute to subacute lacunar infarct. No additional foci of restricted diffusion identified. There is no hemorrhage or mass effect. No extra-axial fluid collection is seen. There is minimal microangiopathic change. The cerebellar tonsils are normal in configuration. Ventricles, sulci, and cisterns: Normal in configuration. Pituitary and sella: Unremarkable. Intracranial vasculature: Normal flow voids are maintained at the skull base. Orbits: The bony orbits are grossly intact. Orbital contents are normal in appearance. Sinuses and mastoids: There is mild mucosal thickening within the maxillary antra. Retention cysts within the maxillary sinuses measuring 2.2 cm. Mild mucosal thickening is also seen within the left frontal and ethmoid sinuses. There are trace mastoid effusions. Calvarium: Unremarkable. Cervical cord: Partially visualized cervical spinal cord is normal in morphology and signal intensity. IMPRESSION: 1. There is an acute to subacute lacunar infarct identified in the posterior right morfin radiata/basal ganglia as above. 2. No additional foci of acute ischemia identified. 3. There is no hemorrhage or mass effect. ACT 112: Negative or not required by law. Electronically signed by: Shlomo Ellison M.D. 11/19/2021 7:58 AM
--- NOTE | 2021-11-19 17:14 | XCELERA ---
[id number]
--- NOTE | 2021-11-19 21:14 | Hospitalist Progress Note ---
Date of Service November 19, 2021 Assessment & Plan (1) Acute ischemic stroke: Plan: right basal ganglia small vessel stroke most likely w/u to date - negative carotid on right, tele w/o a.fib/flutter echo with probable PFO hypercoagulable state due to COVID likely contributed heavily to this stroke event underlying hypercoagulable state (genetic) work-up pending - prothrombin gene, factor 5 Leiden, homocysteine level, etc - all pending HOWEVER - no family h/o VTE appreciate neuro consult asa/plavix 3 weeks, then asa 81mg daily thereafter for secondary prevention Rx lipids - add statin to his tricor, watch for rhabdo PT, OT, speech likely needs inpatient rehab (2) COVID-19: Plan: mild URI symptoms add mucinex BID no pneumonia no role for Remdesivir or Dexamethasone at this time complicated by #1 above cont airborne precautions cont lovenox for DVT proph consider xarelto 10mg daily at d/c x 35 days (3) Hypomagnesemia: Plan: repleted (4) Snoring: Plan: needs formal sleep study (5) Dyslipidemia: Plan: cont fenofibrate add statin - lipitor 40mg daily watch for rhabdo given concurrent usage of these 2 agents (6) DVT prophylaxis: Plan: lovenox 40mg daily Plan total time about 35 minutes, >50% of which was spent counseling he & his at bedside Admission and Anticipated Discharge Date Admission Date: November 18, 2021 Subjective patient reports ongoing left facial droop, and LLE>LUE weakness about the same in terms of weakness vs admission no right-sided symptoms ongoing sinus symptoms from COVID minimal cough no fever/chills at bedside lengthy discussion about possible etiology of stroke he had COVID in Mar 2021 in addition to now his maternal GF had a stroke he was a smoker in the past - now quit\ Review of Systems Review of Systems: gen - no fevers/chills cv - no cp pulm - no dyspnea GI - no pain, no nausea, no diarrhea neuro - no headache Physical Exam Physical Exam: gen - pleasant, NAD face - left lower facial droop - mild speech - no dysarthria or aphasia neck - no JVD heart - RRR, s1 s2, no murmur lungs - CTA b/l abd - soft NT ND BS+ ext - no edema, pulses 2+ b/l neuro - strength LUE about 4/5 all muscle groups; LLE - 3/5 hip flexion; dorsiflexion/plantarflexion closer 4/5 Results & Data Results & Data ([facility]) Vital Signs (Past 12 Hours) Vital Signs Temp Pulse Pulse Resp BP Pulse Ox O2 Del Method 11/19/21 16:00 75 18 142/70 H 96 Room Air 11/19/21 12:15 36.8 C 77 18 132/86 95 Room Air 11/19/21 16:41 80 Laboratory Results Laboratory Results - last 24 hr 11/19/21 11/19/21 11/19/21 06:59 06:59 06:59 WBC 5.06 RBC 4.80 Hgb 14.5 Hct 42.2 MCV 87.9 MCH 30.2 MCHC 34.4 RDW Std Deviation 41.6 RDW Coeff of [place] 12.9 Plt Count 177 MPV 9.6 Immature Gran % (Auto) 0.4 Neut % (Auto) 51.2 Lymph % (Auto) 33.2 [place] % (Auto) 12.6 Eos % (Auto) 2.0 Baso % (Auto) 0.6 Neut # (Auto) 2.59 Lymph # (Auto) 1.68 [place] # (Auto) 0.64 Eos # (Auto) 0.10 Baso # (Auto) 0.03 Immature Gran # (Auto) 0.02 Sodium 139 Potassium 3.8 Chloride 106 Carbon Dioxide 23 Anion Gap 10 BUN 12 Creatinine 0.74 Est Cr Clr Drug Dosing 153.1 Est GFR ( Amer) 128.2 Est GFR (Non-Af Amer) 110.6 BUN/Creatinine Ratio 16.2 Glucose 88 Estimat Average Glucose 117 Hemoglobin A1c 5.7 H Calcium 9.4 Triglycerides 176 H Cholesterol 177 LDL Cholesterol, Calc 112 VLDL Cholesterol, Calc 35 H HDL Cholesterol 30 Cholesterol/HDL Ratio 5.9 H PG Care Time/CCT Total # of Minutes Spent Total Time Spent with Patient: Total time spent is greater than 50% in coordination of care (as documented) at patient's floor/unit and/or counseling patient: Coding Level of Care Code 28541 Subseq Hosp Care Lvl 3 Diagnoses Acute ischemic stroke I63.9 COVID-19 U07.1 Hypomagnesemia E83.42 Snoring R06.83 Dyslipidemia E78.5 DVT prophylaxis Z29.9
[2021-11-19] MEDS ORDERED: CLOPIDOGREL BISULFATE 75 MG TAB PO ONE (21:30)
[2021-11-19] MEDS: guaiFENesin 600 MG TABCR PO SCH (22:07)
[2021-11-20 06:29] LABS: Basophils # (auto) 0.03 K/uL (0-0.2); Basophils % (auto) 0.6 %; Eosinophils # (auto) 0.17 K/uL (0-0.50); Eosinophils % (auto) 3.5 %; Hematocrit (blood only) 42.9 % (40.1-51.0); Hemoglobin 14.8 g/dl (14.0-18.0); Immature Granulocytes # (auto) 0.01 K/uL (0.00-0.02); Immature Granulocytes % (auto) 0.2 %; Lymphocytes # (auto) 1.97 K/uL (1.2-3.4); Lymphocytes % (auto) 40.3 %; Mean Corpuscular Hemoglobin 30.3 pg (25.0-34.0); Mean Corpuscular Hgb Conc 34.5 g/dL (32.0-36.0); Mean Corpuscular Volume 87.7 fL (80.0-100.0); Mean Platelet Volume 9.6 fL (9.4-12.4); Monocytes # (auto) 0.55 K/uL (0.24-0.82); Monocytes % (auto) 11.2 %; Neutrophils # (auto) 2.16 K/uL (1.4-6.5); Neutrophils % (auto) 44.2 %; Platelet Count 166 K/uL (130-400); RDW Coefficient of Variation 12.8 % (11.5-14.5); RDW Standard Deviation 41.1 fL (36.4-46.3); Red Blood Count 4.89 M/uL (4.63-6.08); White Blood Count 4.89 K/ul (4.8-10.8)
[2021-11-20 07:08] LABS: BUN Creatinine Ratio 24.4 (10-20); Calcium 9.5 mg/dl (8.5-10.1); Creatinine Clr Calc Pharmacy 145.3 ml/min; Est GFR (African American) 125.5 ml/min; Est GFR (Non-African American) 108.3 ml/min; Potassium 3.9 mmol/L (3.5-5.1)
[2021-11-20] MEDS: ASCORBIC ACID 500 MG TAB PO SCH ×2 (08:21→21:59)
[2021-11-20] MEDS: CLOPIDOGREL BISULFATE 75 MG TAB PO SCH (08:21)
[2021-11-20] MEDS: ASPIRIN 81 MG ECTAB PO SCH (08:21)
[2021-11-20] MEDS: CHOLECALCIFEROL 1,000 UNITS 25 MCG TAB PO SCH (09:49)
[2021-11-20] MEDS: FENOFIBRATE NANOCRYSTALLIZED 48 MG TABLET PO SCH (09:49)
[2021-11-20] MEDS: guaiFENesin 600 MG TABCR PO SCH ×2 (09:50→21:59)
[2021-11-20] MEDS: ENOXAPARIN INJ 40 MG/0.4 ML SYR SQ SCH (09:50)
[2021-11-20] MEDS: ATORVASTATIN 40 MG TAB PO SCH (09:50)
[2021-11-20] MEDS: LORATADINE 10 MG TAB PO SCH (09:50)
[2021-11-20] MEDS ORDERED: amLODIPine BESYLATE 5 MG TAB PO ONE (19:04)
--- NOTE | 2021-11-20 20:22 | Hospitalist Progress Note ---
Date of Service November 20, 2021 Assessment & Plan (1) Acute ischemic stroke: Plan: right basal ganglia small vessel stroke most likely w/u to date - negative carotid on right, tele w/o a.fib/flutter echo with probable PFO but doubt contributed to stroke homocysteine level high hypercoagulable state due to COVID likely contributed heavily to this stroke event underlying hypercoagulable state (genetic) work-up pending - prothrombin gene, factor 5 Leiden, etc - pending HOWEVER - no family h/o VTE appreciate neuro consult asa/plavix 3 weeks, then asa 81mg daily thereafter for secondary prevention Rx lipids - added statin to his tricor, watch for symptoms of rhabdo PT, OT, speech consult appreciated needs inpatient rehab - accepted at [facility] - could be ready for d/c tomorrow (2) COVID-19: Plan: mild URI symptoms only BUT complicated by #1 above cont mucinex BID no pneumonia on cxr; sats wnl no role for Remdesivir or Dexamethasone at this time cont airborne precautions cont lovenox for DVT proph consider xarelto 10mg daily at d/c x 35 days (3) Hypomagnesemia: Plan: repleted repeat level AM (4) Snoring: Plan: needs formal sleep study mild pulm HTN seen on echo could be due to long-standing, undiagnosed/untreated ROCIO (5) Dyslipidemia: Plan: cont fenofibrate added statin - lipitor 40mg daily watch for rhabdo given concurrent usage of these 2 agents (6) DVT prophylaxis: Plan: lovenox 40mg daily (7) Homocysteinemia: Plan: could have contributed to heightened stroke risk start B12 1000mcg daily, B6 50mg daily, and folic acid 1mg daily should have level repeated (FASTING) in a few months (8) PFO (patent foramen ovale): Plan: no Rx needed at this time unlikely contributed to his acute stroke Plan updated by phone hopefully d/c to [facility] tomorrow Admission and Anticipated Discharge Date Admission Date: November 18, 2021 Subjective pt reports no worsening of mild COVID symptoms mucinex helping cough and nasal congestion no fevers eating well notes minimal improvement in LUE and LLE weakness VERY interested in going to rehab tele overnight - no a.fib or flutter Review of Systems Review of Systems: gen - no fevers cv - no cp, no orthopnea pulm - no wheeze, dyspnea GI - no nausea, emesis or diarrhea musculo - no myalgias Physical Exam Physical Exam: gen - pleasant, NAD face - left lower facial droop unchanged speech - no dysarthria or aphasia neck - no JVD heart - RRR, s1 s2, no murmur lungs - CTA b/l abd - soft NT ND BS+ ext - no edema, pulses 2+ b/l neuro - strength LUE about 4/5 all muscle groups; LLE - 3-4/5 hip flexion; dorsi flexion/plantarflexion 4/5 Results & Data Results & Data ([facility]) Vital Signs (Past 12 Hours) Vital Signs Temp Pulse Pulse Resp BP Pulse Ox O2 Del Method 11/20/21 16:00 70 11/20/21 08:23 36.6 C 65 20 148/86 H 96 Room Air Laboratory Results Laboratory Results - last 24 hr 11/18/21 11/20/21 11/20/21 19:42 05:45 05:45 WBC 4.89 RBC 4.89 Hgb 14.8 Hct 42.9 MCV 87.7 MCH 30.3 MCHC 34.5 RDW Std Deviation 41.1 RDW Coeff of Mindi 12.8 Plt Count 166 MPV 9.6 Immature Gran % (Auto) 0.2 Neut % (Auto) 44.2 Lymph % (Auto) 40.3 Rowan % (Auto) 11.2 Eos % (Auto) 3.5 Baso % (Auto) 0.6 Neut # (Auto) 2.16 Lymph # (Auto) 1.97 Rowan # (Auto) 0.55 Eos # (Auto) 0.17 Baso # (Auto) 0.03 Immature Gran # (Auto) 0.01 Sodium 137 Potassium 3.9 Chloride 106 Carbon Dioxide 23 Anion Gap 8 BUN 19 Creatinine 0.78 Est Cr Clr Drug Dosing 145.3 Est GFR ( Amer) 125.5 Est GFR (Non-Af Amer) 108.3 BUN/Creatinine Ratio 24.4 H Glucose 108 H Calcium 9.5 Homocysteine 15.4 H Diagnostic Findings echo - mild pulm HTN, PFO, EF wnl PG Care Time/CCT Total # of Minutes Spent Total Time Spent with Patient: Total time spent is greater than 50% in coordination of care (as documented) at patient's floor/unit and/or counseling patient: Coding Level of Care Code 86707 Subseq Hosp Care Lvl 3 Diagnoses Acute ischemic stroke I63.9 COVID-19 U07.1 Hypomagnesemia E83.42 Snoring R06.83 Dyslipidemia E78.5 DVT prophylaxis Z29.9 Homocysteinemia R79.83 PFO (patent foramen ovale) Q21.1
[2021-11-21 07:40] LABS: Basophils # (auto) 0.03 K/uL (0-0.2); Basophils % (auto) 0.7 %; Eosinophils # (auto) 0.15 K/uL (0-0.50); Eosinophils % (auto) 3.3 %; Hematocrit (blood only) 43.9 % (40.1-51.0); Hemoglobin 15.1 g/dl (14.0-18.0); Immature Granulocytes # (auto) 0.01 K/uL (0.00-0.02); Immature Granulocytes % (auto) 0.2 %; Lymphocytes # (auto) 2.23 K/uL (1.2-3.4); Lymphocytes % (auto) 49.6 %; Mean Corpuscular Hemoglobin 29.9 pg (25.0-34.0); Mean Corpuscular Hgb Conc 34.4 g/dL (32.0-36.0); Mean Corpuscular Volume 86.9 fL (80.0-100.0); Mean Platelet Volume 9.6 fL (9.4-12.4); Monocytes # (auto) 0.42 K/uL (0.24-0.82); Monocytes % (auto) 9.3 %; Neutrophils # (auto) 1.66 K/uL (1.4-6.5); Neutrophils % (auto) 36.9 %; Platelet Count 174 K/uL (130-400); RDW Coefficient of Variation 12.6 % (11.5-14.5); RDW Standard Deviation 40.1 fL (36.4-46.3); Red Blood Count 5.05 M/uL (4.63-6.08)
[2021-11-21 08:07] LABS: BUN Creatinine Ratio 18.9 (10-20); Calcium 9.8 mg/dl (8.5-10.1); Creatinine Clr Calc Pharmacy 153.1 ml/min; Est GFR (African American) 128.2 ml/min; Est GFR (Non-African American) 110.6 ml/min; Magnesium 1.7 mg/dl (1.7-2.4); Potassium 4.1 mmol/L (3.5-5.1)
[2021-11-21] MEDS: ASPIRIN 81 MG ECTAB PO SCH (08:22)
[2021-11-21] MEDS: LORATADINE 10 MG TAB PO SCH (08:22)
[2021-11-21] MEDS: FENOFIBRATE NANOCRYSTALLIZED 48 MG TABLET PO SCH (08:22)
[2021-11-21] MEDS: ATORVASTATIN 40 MG TAB PO SCH (08:22)
[2021-11-21] MEDS: guaiFENesin 600 MG TABCR PO SCH (08:22)
[2021-11-21] MEDS: CLOPIDOGREL BISULFATE 75 MG TAB PO SCH (08:22)
[2021-11-21] MEDS: ASCORBIC ACID 500 MG TAB PO SCH (08:22)
[2021-11-21] MEDS: CHOLECALCIFEROL 1,000 UNITS 25 MCG TAB PO SCH (08:23)
[2021-11-21] MEDS ORDERED: PYRIDOXINE HCL 50 MG TAB PO SCH (09:00)
[2021-11-21] MEDS ORDERED: FOLIC ACID 1 MG TAB PO SCH (09:00)
[2021-11-21] MEDS ORDERED: CYANOCOBALAMIN (B-12) 500 MCG TABLET PO SCH (09:00)
[2021-11-21] MEDS ORDERED: amLODIPine BESYLATE 5 MG TAB PO SCH (09:00)
[2021-11-21] MEDS: ENOXAPARIN INJ 40 MG/0.4 ML SYR SQ SCH (09:17)
[2021-11-21] MEDS ORDERED: STROKE PATIENT DISCHARGE STA (13:33)
--- NOTE | 2021-11-21 13:46 | Discharge Summary ---
Date of Service date of admission - November 18, 2021 date of discharge - November 21, 2021 Admission HPI Per Admitting Provider Stephen Brown is a 46-year-old male with past medical history of hyperlipidemia and previous COVID infection in March 2021 who presents today with strokelike symptoms. Yesterday at work around noon, he noticed that the left side of his body seemed weaker than the right. He notes it felt like when the circulation gets cut off and part of the body goes numb. When he went home, his noticed that he seemed to be talking out of the right side of his mouth and had a left-sided facial droop. He is also been dragging his left leg a bit to walk. Since onset yesterday afternoon, his symptoms seem to become worse, therefore he presents today for further evaluation. Prior to this, he had been feeling well. He notes some sinus congestion when the symptoms began yesterday, however this has cleared up. He denies any fever/chills, headaches, neck stiffness, visual changes, sudden chest pain or palpitations, or right-sided involvement. Other than medication for high cholesterol, he is not on any other medications other than vitamins, Viagra, and Claritin. He is physically active at his job and has some exercise related body aches, however denies any neck or back injuries. Has had no recent rashes or tick bites, no decreased energy or myalgias. He has no personal family history of strokes or blood clotting disorders. In ED, still mildly hypertensive otherwise vital signs within normal limits and stable. Labs significant for magnesium slightly low at 1.6, otherwise unremarkable. Head CT unrevealing. On head CTA, there is a possible occlusion of the small sylvian branch of the left MCA, possibly artifactual. Neck CTA there is mild atherosclerotic plaque of the proximal bilateral internal carotid arteries without significant stenosis, no dissection within major vessels of the neck. Principal Diagnosis 1. Right-sided posterior morfin radiata/basal ganglia stroke 2. COVID-19 infection 3. hyperlipidemia 4. homocysteinemia Discharge Exam gen - pleasant, NAD face - left lower facial droop unchanged speech - no dysarthria or aphasia neck - no JVD heart - RRR, s1 s2, no murmur lungs - CTA b/l abd - soft NT ND BS+ ext - no edema, pulses 2+ b/l neuro - strength LUE about 4/5 all muscle groups; LLE - 3-4/5 hip flexion; daisy siflexion/plantarflexion LLE 4/5 Discharge Data Allergies Allergy/AdvReac Type Severity Reaction Status Date / Time No Known Allergies Verified 05/21/21 12:07 Consultations [facility] PT, OT Speech therapy Procedures Performed Echocardiogram: * EF 60-65% * suspected PFO * mild pulmonary HTN (PA pressure 30-40mmHg) * normal valve function Ordered Studies Chest X-Ray 11/18/21 16:04 SINGLE VIEW CHEST CLINICAL HISTORY: Strokelike symptoms FINDINGS: 2 AP, portable, upright chest radiographs are obtained. No prior studies are available for comparison at the time of dictation. The cardiomediastinal silhouette is unremarkable. The lungs and pleural spaces are clear. No pneumothorax is seen. The bony thorax is grossly intact. IMPRESSION: No active disease in the chest. ACT 112: Negative or not required by law. Electronically signed by: Shlomo Ellison M.D. 11/18/2021 5:[address] 11/18/21 16:04 CT OF THE HEAD WITHOUT CONTRAST CLINICAL HISTORY: Stroke Like Symptoms COMPARISON STUDY: No previous studies for comparison. TECHNIQUE: Helical axial images of the head were obtained without IV contrast. Automated exposure control was utilized for the study. A dose lowering technique was utilized adhering to the principles of ALARA. FINDINGS: No acute intracranial hemorrhage, midline shift or mass effect is present. The ventricular system is unremarkable. The basal cisterns are patent. No extra-axial collections are present. There are no findings to suggest acute dural sinus thrombosis or acute territorial infarct. No significant calvarial abnormalities are present. IMPRESSION: No acute intracranial findings. ACT 112: Negative or not required by law. Electronically signed by: Alejandro Giang M.D. 11/18/2021 6:05 PM Head CTA 11/18/21 16:04 CTA ANGIOGRAPHY OF THE HEAD CLINICAL HISTORY: Stroke Like Symptoms COMPARISON STUDY: No previous studies for comparison. TECHNIQUE: Helical axial images of the head were obtained following uneventful intravenous administration of 119 cc of Optiray. Sagittal and coronal rec onstructions were viewed as well as maximal intensity projections on an independent 3-D workstation. Automated exposure control was utilized for the study. A dose lowering technique was utilized adhering to the principles of ALARA. FINDINGS: Mucous retention cysts with polypoid mucosal thickening of the maxillary sinuses is noted. Left ethmoid sinus mucosal thickening is present. Tiny infundibula of the bilateral supraclinoid ICAs are noted. There is possible occlusion of a small sylvian branch of the left middle cerebral artery shown on axial image 121 of 279. No additional sites of vessel occlusion are noted. This could be artifactual. The posterior circulation is intact. There is no intracranial aneurysm. There is no dissection within the intracranial vessels. IMPRESSION: 1. Possible occlusion of a small sylvian branch of the left middle cerebral artery. This may be artifactual however correlation with evidence for a left MCA territory infarct is recommended. 2. Otherwise, unremarkable CTA of the head. ACT 112: Negative or not required by law. Electronically signed by: Alejandro Giang M.D. 11/18/2021 6:16 PM Neck CTA 11/18/21 16:04 CT ANGIOGRAPHY OF THE NECK WITH CONTRAST CLINICAL HISTORY: Stroke Like Symptoms COMPARISON STUDY: No previous studies for comparison. Technique: CT angiography of the carotid and vertebral arteries was obtained using Optiray and 3D reconstruction on an independent workstation. NASCET criteria was utilized. Automated exposure control was utilized for the study. A dose lowering technique was utilized adhering to the principles of ALARA. CT DOSE: 1232.39 mGy.cm Findings: Several prominent left supraclavicular lymph nodes measure up to 8 mm in short axis diameter. No acute cervical spine fracture is noted. Mucus retention cysts with polypoid mucosal thickening within the maxillary sinuses is noted. The bilateral vertebral arteries are patent. There is no stenosis within these vessels. The right vertebral artery is dominant. There is mild plaque within the proximal bilateral internal carotid arteries without stenosis. There is no aneurysm or dissection within the major vessels of the neck. IMPRESSION: 1. Mild atherosclerotic plaque within the proximal bilateral internal carotid arteries without significant stenosis. 2. No dissection within the major vessels of the neck. ACT 112: Negative or not required by law. Electronically signed by: Alejandro Giang M.D. 11/18/2021 6:08 PM Brain MRI 11/18/21 18:56 MRI OF THE BRAIN WITHOUT IV CONTRAST CLINICAL HISTORY: Strokelike symptoms. COMPARISON STUDY: CT of the brain dated 11/18/2021. TECHNIQUE: MRI of the brain was performed utilizing various T1 and T2-weighted sequences in the axial, sagittal, and coronal planes. IV contrast was not administered for this examination. FINDINGS: Brain parenchyma: There is a 2.2 cm focus of restricted diffusion identified in the posterior right morfin radiata/basal ganglia consistent with an acute to subacute lacunar infarct. No additional foci of restricted diffusion identified. There is no hemorrhage or mass effect. No extra-axial fluid collection is seen. There is minimal microangiopathic change. The cerebellar tonsils are normal in configuration. Ventricles, sulci, and cisterns: Normal in configuration. Pituitary and sella: Unremarkable. Intracranial vasculature: Normal flow voids are maintained at the skull base. Orbits: The bony orbits are grossly intact. Orbital contents are normal in appearance. Sinuses and mastoids: There is mild mucosal thickening within the maxillary antra. Retention cysts within the maxillary sinuses measuring 2.2 cm. Mild mucosal thickening is also seen within the left frontal and ethmoid sinuses. There are trace mastoid effusions. Calvarium: Unremarkable. Cervical cord: Partially visualized cervical spinal cord is normal in morphology and signal intensity. IMPRESSION: 1. There is an acute to subacute lacunar infarct identified in the posterior right morfin radiata/basal ganglia as above. 2. No additional foci of acute ischemia identified. 3. There is no hemorrhage or mass effect. ACT 112: Negative or not required by law. Electronically signed by: Shlomo Ellison M.D. 11/19/2021 7:58 AM Hospital Course (1) Acute ischemic stroke: right basal ganglia/morfin radiata this was likely due to an occluded small vessel work-up: NO carotid disease on right tele w/o a.fib/flutter echo with probable PFO but doubt contributed to stroke homocysteine level high at 15.4 (normal <11.4) hypercoagulable state due to COVID likely contributed heavily to this stroke event underlying hypercoagulable state (genetic) work-up pending - prothrombin gene, factor 5 Leiden, lupus anticoagulant, etc HOWEVER - no family h/o VTE seen by neurology during the hospital stay- combination of asa/plavix for 3 weeks advised, then asa 81mg daily thereafter for secondary prevention Rx lipids - added lipitor 40mg daily to his trico; need to watch for symptoms of rhabdo PT, OT, speech consults completed and inpatient rehab advised Patient is transferring to [facility] post-discharge For completeness will recommend a 30-day outpatient event monitor to ensure no PAF as the cause of his stroke. (2) Hemiparesis of left nondominant side due to cerebral infarction: see #1 above (3) COVID-19: Patient presented with mild URI symptoms only BUT complicated by #1 above. The hypercoagulable state induced by COVID likely contributed to his acute stroke. No pneumonia on cxr; sats wnl. No role for Remdesivir or Dexamethasone at this time. Continue lovenox for DVT prophylaxis while at [facility]. (4) Hypomagnesemia: repleted and resolved (5) Snoring: needs formal sleep study mild pulm HTN seen on echo could be due to long-standing, undiagnosed/untreated ROCIO (6) Dyslipidemia: cont fenofibrate added statin - lipitor 40mg daily watch for rhabdo given concurrent usage of these 2 agents lipid values were as follows - Total cholesterol = 177 LDL = 112 HDL = 30 Triglycerides = 176 (7) DVT prophylaxis: lovenox 40mg daily (8) Homocysteinemia: could have contributed to heightened stroke risk level = 15.4 started B12 1000mcg daily, B6 50mg daily, and folic acid 1mg daily should have level repeated (FASTING) in a few months prior to supplementation his folate level was normal and vitamin B12 level was 337 (9) PFO (patent foramen ovale): no Rx needed at this time unlikely contributed to his acute stroke Total Time Total Time Spent Total Time Spent (In Minutes): 45 Discharge Plan Discharge Items Patient Disposition: Transfer Inpatient Rehab Fac Reason For Visit: LEFT SIDED WEAKNESS, FACIAL DROOP Discharge Diagnosis: 1. COVID-19 infection 2. Acute stroke of right basal ganglia 3. Homocysteinemia 4. Hyperlipidemia 5. top-normal hemoglobin a1c of 5.7% Activity: Resume your previous activity Non-emergency contact: Primary Care Provider and Neurologist Call non-emergency contact if: you have any medication questions and your symptoms worsen Follow-up/Referrals: Epi Gallegos MD [Physician] - (1 month - f/u from acute stroke ) Anneliese Giang MD [Primary Care Provider] - (within 1 week of discharge from [facility] ) Diet: Heart Healthy Addtl Attending Provider Instructions: Rafiq Hernandez were hospitalized at [facility] after suffering from a stroke. The stroke was located deep in the brain on the right side. The stroke caused mild drooping of the lower left side of your face, and has caused your left arm/hand and left leg to be weak. It is likely that a very tiny artery deep in the brain was clogged with plaque which then caused the stroke. Upon presentation to the hospital a COVID test returned positive. This was the cause of your congestion/cough/etc. We have seen throughout the pandemic that COVID-19, for reasons not entirely understood, causes inflammation within our blood vessels and makes our blood "thicker." This, in turn, increases the risk of blood clots, strokes, and heart attacks. You have other risk factors for stroke including high cholesterol, prior smoking, and a family history of stroke. We performed a diabetes screen on you and your hemoglobin a1c returned at 5.7%. It was also 5.7% in 2020. This is at the very upper limits of normal. See handout on hemoglobin a1c. If the number rises further we would give you a diagnosis of "pre-diabetes." We have sent off additional blood tests to look for inherited/genetic factors that could increase your risk of stroke. Most of these will come back in about a week. We did have 1 test return high called "homocysteine." High levels of homocysteine can increase the chances of blood clots, heart disease, etc. See handout. It is treated with a combination of vitamin B12, B6, and folate. [facility]rology has advised the following -- * aspirin 81mg daily indefinitely -- to prevent a future stroke * plavix 75mg once daily x 3 weeks * lipitor cholesterol medication - likely indefinitely * follow-up in about 1 month in the neurology clinic * rehab In addition, we are going to set up a 30-day monitor to rule out abnormal heart rhythms that can cause stroke. This device monitors your heart rhythm. It will be mailed to your home and you can start to wear it while at rehab. Follow-up - see separate section Return to [facility] if - * your left sided weakness gets worse * you develop weakness on the right side * you develop speech or swallowing issues * your breathing worsens from COVID infection * you have chest pains * any other concerns It was my pleasure to care for you at [facility]! Good luck with your rehab and best wishes for a speedy recovery, Dr Siuta Addtl Chemical Dependency Counselor Provider Instructions: Risk Factors for Stroke: You can reduce your chances of stroke by working with your medical provider to adopt a healthy lifestyle. Some specific ways to lower your chance of stroke are: * If you are a smoker, now is the time to stop smoking cigarettes * If you are diabetic, improve the control of your blood sugars * Avoid excessive amounts of alcohol * Control high blood pressure * Lose weight if you are overweight * Be sure to lead an active lifestyle * Eat a healthy diet low in salt, cholesterol and fat You should know about other risk factors for stroke that you are unable to control. These include: * Age 55 years or older * Male gender * Certain racial groups: , or / * Family History of Stroke, Mini stroke or Heart Attack * Sickle Cell Disease Who to Call and When: Medical Emergencies: Call 911 immediately if you experience any of the following warning signs and symptoms of Stroke: * Sudden numbness or weakness of the face, arm or leg, especially on one side of the body * Sudden confusion, trouble speaking or understanding * Sudden trouble seeing in one or both eyes * Sudden trouble walking, dizziness, loss of balance or coordination * Sudden severe headache with no cause Do not delay calling 911 if you experience any warning signs or symptoms of a stroke. Delay in seeking medical attention may affect what treatments can be given to you. . Pending Studies at Discharge: Yes Studies:: Genetic testing for inherited causes of clotting Stand-Alone Forms: Medications to Prevent Stroke, [facility] Skilled Items Patient informed of condition?: Yes DNR: No Discharge Level of Care: Acute rehab Communicable Disease: Yes Discharge Prognosis: Stable Lines: None Urinary Catheter: No Medications and DC Order Prescriptions: New atorvastatin 40 mg Tablet 40 mg PO QAM Qty: 30 5RF clopidogrel 75 mg Tablet 75 mg PO QAM 20 Days Qty: 20 0RF aspirin 81 mg Tablet,Delayed Release (Dr/Ec) 81 mg PO QAM Qty: 90 3RF enoxaparin [Lovenox] 40 mg/0.4 mL Syringe 40 mg subcut QAM 30 Days Qty: 12 0RF guaifenesin [Mucinex] 600 mg Tablet Extended Release 12hr 1,200 mg PO Q12 Qty: 30 0RF cyanocobalamin (vitamin B-12) 500 mcg Tablet 1,000 mcg PO QAM Qty: 60 5RF pyridoxine (vitamin B6) 50 mg Tablet 50 mg PO QAM Qty: 30 5RF folic acid 1 mg Tablet 1 mg PO QAM Qty: 30 5RF pantoprazole [Protonix] 40 mg tablet,delayed release (DR/EC) 40 mg PO DAILY Qty: 30 0RF Continued loratadine [Claritin] 10 mg tablet 10 mg PO QAM cholecalciferol (vitamin D3) 1,000 unit capsule 2,000 units PO QAM ascorbic acid (vitamin C) 1,000 mg tablet 1 gm PO BID omega-3 acid ethyl esters 1 gram capsule 2 cap PO QAM fenofibrate nanocrystallized [Tricor] 48 mg tablet 48 mg PO QAM Discontinued Sutab 1.479-0.188- 0.225 gram tablet See Rx Instructions PO .COMPLEX Qty: 24 0RF Rx Instructions: TAKE DIRECTED PER SPLIT DOSE INSTRUCTIONS BIN: [id number] PCN: CN GROUP: [id number] sildenafil (pulm.hypertension) 20 mg tablet See Rx Instructions .ROUTE .COMPLEX PRN (Reason: Erectile Dysfunction) Rx Instructions: 1-5 tablets PO daily as needed Discharge Orders: Discharge Order (Routine); Ordered 11/21/21 Ordered By: Deepak Irvin/Other Patient Handouts: A1C, Homocysteine Admission Data Admit Date/Time: 11/18/21 18:56 Attending Provider: Deepak Wells Admit Provider: Adin Berman Primary Care Provider: Anneliese Giang Other Providers: Adin Berman ; Maurice Elizondo ; [facility] Other Interventions: Discharge Summary Assessment (RN) Last Done: 11/21/21 15:40 Coding Level of Care Code D/C DAY MANAGEMENT >30 MINS Diagnoses Acute ischemic stroke I63.9 Hemiparesis of left nondominant side due to cerebral infarction COVID-19 U07.1 Hypomagnesemia E83.42 Snoring R06.83 Dyslipidemia E78.5 DVT prophylaxis Z29.9 Homocysteinemia R79.83 PFO (patent foramen ovale) Q21.1
[2021-11-21 15:13] LABS: Folate (Folic Acid) 12.76 ng/ml (>5.38)
[2021-11-25 00:16] LABS: Anti Cardiolipin Ab IgG <2.0 GPL-U/mL; Anti Cardiolipin Ab IgM <2.0 MPL-U/mL; Anti-Thrombin III Activity 117 % normal (80-135); PTT LA Screen 46 sec (<=40)
[2021-11-25 07:12] LABS: B2 Glycoprotein IgG <2.0 U/mL (<20.0); B2 Glycoprotein IgM <2.0 U/mL (<20.0); Protein S Functional(Activity) 106 % (70-150)
[2021-11-25 10:57] LABS: Lupus Hex Phase (Rflxdonotord) Negative (Negative)
[2021-11-27 18:36] LABS: Factor 5 Mutation NEGATIVE
== END 2021-11-21 17:07 | DRG 64 ==
LOC: ED 15:52 → EDINP 18:56 → SUATTDRO 18:56 → 2N 23:05